=== PATIENT | female | born 1975 | race Caucasian/White ===

== ENCOUNTER 2018-01-15 15:24 | Emergency (ER) | payer BC ==
[~2018-01-15] VITALS: Ht 154.9 cm; Wt 64.0 kg
[~2018-01-15 15:24] MED LIST: CALCCHW25 CHEW; CLOB0.0571 TOPICAL; IRON PO; LEVOTAB14 PO; MULTTAB67 PO
[2018-01-15 15:27] VITALS: BP 188/78; PULSE 83; RESP 18; TEMP 99; O2SAT 0; O2SAT 100
[2018-01-15 15:55] LABS: BILIRUBIN, URINE NEG (NEG); BLOOD, URINE NEG (NEG); GLUCOSE,URINE NEG (NEG); KETONE, URINE 15 mg/dL (NEG); NITRITE,URINE NEG (NEG); PH, URINE 5.5 (5.0-8.5); URINE COLOR YELLOW (YELLW/STRAW); URINE LEUKOCYTE ESTERASE NEG (NEG)
[2018-01-15 16:03] LABS: MUCUS URINE FEW /lpf (OCC); SQUAMOUS EPITHELIAL CELL URINE 0-2 /hpf (0-5)
--- NOTE | 2018-01-15 16:42 | PD ---
HPI Chief Complaint: Abdominal Pain Time Seen by Provider: 16:34 Travel History International Travel<30 days: No Contact w/Intl Traveler<30days: No Traveled to known affect area: No History of Present Illness HPI 42-year-old female with history of Mary-en-Y gastric bypass surgery by Dr. Sierra in 2008, cholecystectomy, ventral hernia repairs, here for evaluation of epigastric and left upper quadrant abdominal pain. Patient reports intermittent episodes of pain over the last 4 days. Pain is described as sharp and radiates to her back. Currently she is pain-free, however she did have the pain when she checked in to the emergency department. Pain seems to be aggravated by eating, improved with having a bowel movement. No diarrhea. No vomiting. No fevers. No urinary symptoms. PFSH Past Medical History Heart Rhythm Problems: Yes (WPW) Cancer: No Cardiac Catheterization: Yes (Ablation, PM) Cardiovascular Problems: Yes (WPW SYNDROME, PACER) Diabetes: No Diminished Hearing: No Endocrine: No Glaucoma: No Genitourinary: No Hepatitis: No Hiatal Hernia: Yes Hypertension: Yes Immune Disorder: No Musculoskeletal: No Neurologic: No Psychiatric: No Reproductive: No Respiratory: No Thyroid Disease: No Tetanus Vaccination: Unknown Influenza Vaccination: Yes ?: Not LMP: 3 weeks : 3 Para: 2 : 1 Past Surgical History Abdominal Surgery: Yes (Gastric bypass) AICD: No Cardiac Surgery: Yes (CARDIAC ABLATION X 2 (SVT), PACEMAKER) Section: Yes (X's 2) Cholecystectomy: Yes Ear Surgery: No Endocrine Surgery: No Eye Surgery: No Genitourinary Surgery: No Gynecologic Surgery: Yes (C SECTION X 2) Joint Replacement: No Oral Surgery: No Pacemaker: Yes (Medtronic ) Other Surgery: Yes Social History Alcohol Use: Yes (Occ.) Tobacco Use: No Substance Use: No Allergies-Medications (Allergen,Severity, Reaction): Coded Allergies: hydromorphone (Verified Allergy, Intermediate, panicky, 01/15/18) codeine (Verified Adverse Reaction, Intermediate, NAUSEA & DIZZY, 01/15/18) Reported Meds & Prescriptions Reported Meds & Active Scripts Active Bentyl (Dicyclomine HCl) 10 Mg Cap 10 Mg PO TID PRN Protonix (Pantoprazole Sodium) 40 Mg Tab 40 Mg PO DAILY Reported Myzilra (Levonorgestrel-Ethinyl Estradiol) 6-5- Tab 1 Tab PO DAILY Review of Systems Except as stated in HPI: all other systems reviewed are Neg Physical Exam Narrative GENERAL: Well-developed, well-nourished, comfortable, no apparent distress. SKIN: Focused skin assessment warm/dry. No rash. HEAD: Atraumatic. Normocephalic. EYES: Pupils equal and round. No scleral icterus. No injection or drainage. ENT: Mucous membranes pink and moist. NECK: Trachea midline. No JVD. CARDIOVASCULAR: Regular rate and rhythm. RESPIRATORY: No accessory muscle use. Clear to auscultation. Breath sounds equal bilaterally. GASTROINTESTINAL: Abdomen soft, non-tender, nondistended. MUSCULOSKELETAL: No obvious deformities. No clubbing. No cyanosis. No edema. NEUROLOGICAL: Awake and alert. No obvious cranial nerve deficits. Motor grossly within normal limits. Normal speech. PSYCHIATRIC: Appropriate mood and affect; insight and judgment normal. Data Data Last Documented VS Vital Signs Date Time Temp Pulse Resp B/P (MAP) Pulse Ox O2 Delivery O2 Flow Rate FiO2 01/15/18 17:50 62 14 150/79 (102) 100 Room Air 01/15/18 15:27 99.0 Orders Orders Urinalysis - C+S If Indicated (01/15/18 15:34) Ed Urine Pregnancytest Poc (01/15/18 15:34) Complete Blood Count With Diff (01/15/18 16:39) Comprehensive Metabolic Panel (01/15/18 16:39) Lipase (01/15/18 16:39) Prothrombin Time / Inr (Pt) (01/15/18 16:39) Act Partial Throm Time (Ptt) (01/15/18 16:39) Iv Access Insert/Monitor (01/15/18 16:39) Ecg Monitoring (01/15/18 16:39) Oximetry (01/15/18 16:39) Sodium Chloride 0.9% Flush (Ns Flush) (01/15/18 16:45) Electrocardiogram (01/15/18 16:39) Ckmb (Isoenzyme) Profile (01/15/18 16:39) Troponin I (01/15/18 16:39) Pantoprazole (Protonix) (01/15/18 17:45) Dicyclomine (Bentyl) (01/15/18 17:45) Labs Laboratory Tests Test 01/15/18 15:39 01/15/18 16:50 Urine Collection Type CLEAN CATCH Urine Color YELLOW Urine Turbidity CLEAR Urine pH 5.5 Urine Specific [place] 1.020 Urine Protein NEG mg/dL Urine Glucose (UA) NEG mg/dL Urine Ketones 15 mg/dL Urine Occult Blood NEG Urine Nitrite NEG Urine Bilirubin NEG Urine Urobilinogen 0.2 MG/DL Urine Leukocyte Esterase NEG Urine Squamous Epithelial Cells 0-2 /hpf Urine Mucus FEW /lpf Microscopic Urinalysis Comment CULT NOT INDICATED White Blood Count 6.5 TH/MM3 Red Blood Count 4.30 MIL/MM3 Hemoglobin 11.0 GM/DL Hematocrit 34.7 % Mean Corpuscular Volume 80.6 FL Mean Corpuscular Hemoglobin 25.6 PG Mean Corpuscular Hemoglobin Concent 31.8 % Red Cell Distribution Width 13.1 % Platelet Count 239 TH/MM3 Mean Platelet Volume 7.9 FL Neutrophils (%) (Auto) 59.4 % Lymphocytes (%) (Auto) 30.4 % Monocytes (%) (Auto) 9.0 % Eosinophils (%) (Auto) 0.8 % Basophils (%) (Auto) 0.4 % Neutrophils # (Auto) 3.8 TH/MM3 Lymphocytes # (Auto) 2.0 TH/MM3 Monocytes # (Auto) 0.6 TH/MM3 Eosinophils # (Auto) 0.1 TH/MM3 Basophils # (Auto) 0.0 TH/MM3 CBC Comment DIFF FINAL Differential Comment Prothrombin Time 10.5 SEC Prothromb Time International Ratio 1.0 RATIO Activated Partial Thromboplast Time 22.9 SEC Blood Urea Nitrogen 7 MG/DL Creatinine 0.58 MG/DL Random Glucose 83 MG/DL Total Protein 6.9 GM/DL Albumin 3.4 GM/DL Calcium Level 8.5 MG/DL Alkaline Phosphatase 54 U/L Aspartate Amino Transf (AST/SGOT) 15 U/L Alanine Aminotransferase (ALT/SGPT) 19 U/L Total Bilirubin 0.2 MG/DL Sodium Level 138 MEQ/L Potassium Level 3.7 MEQ/L Chloride Level 106 MEQ/L Carbon Dioxide Level 24.3 MEQ/L Anion Gap 8 MEQ/L Estimat Glomerular Filtration Rate 114 ML/MIN Total Creatine Kinase 67 U/L Troponin I LESS THAN 0.02 NG/ML Lipase 98 U/L [facility] Medical Decision Making Medical Screen Exam Complete: Yes Emergency Medical Condition: Yes Medical Record Reviewed: Yes Interpretation(s) EKG: Sinus, rate 59, normal axis, normal intervals, no acute ischemic abnormality. Differential Diagnosis Gastritis, peptic ulcer disease, pancreatitis, hepatobiliary disease, internal hernia Narrative Course Vital signs reviewed. CBC: WBC 6.5, hemoglobin 11, hematocrit 34.7, platelets 239. CMP is unremarkable. Lipase is 98. Cardiac enzymes are negative. UA is not suggestive of UTI. Case was discussed with bariatric surgeon Dr. Sierra. The patient is currently pain-free and has no clinical signs of obstruction. She is having normal bowel movements and is not vomiting. Plan at this time is to discharge her home in his office will contact her tomorrow to schedule an outpatient CT scan as well as outpatient follow-up in his office. Patient was made aware of all findings and is happy with this plan. She was advised on when to return to the emergency department. Diagnosis Primary Impression: Abdominal pain Qualified Codes: R10.13 - Epigastric pain Referrals: Erik Solorzano MD 1 day Additional Instructions: Follow-up with Dr. Solorzano this week. Return to the emergency department for worsening symptoms or any other concerns. Scripts Dicyclomine (Bentyl) 10 Mg Cap 10 MG PO TID Y for Bowel Management, #20 CAP 0 Refills Prov: Santino Liz MD 01/15/18 Pantoprazole (Protonix) 40 Mg Tab 40 MG PO DAILY for Reflux, #30 TAB 0 Refills Prov: Santino Liz MD 01/15/18 Disposition: 01 DISCHARGE HOME Condition: Stable Santino Liz MD Jan 15, 2018 16:42
[2018-01-15] MEDS ORDERED: SODIUM CHLORIDE 0.9% FLUSH 10 ML FLUSH IV FLUSH PRN (16:45)
[2018-01-15 16:55] VITALS: O2SAT 100
[2018-01-15 17:02] LABS: AUTOMATED NEUTROPHIL # 3.8 TH/MM3 (1.8-7.7); BASOPHIL % 0.4 % (0.0-2.0); EOSINOPHIL # 0.1 TH/MM3 (0-0.4); EOSINOPHIL % 0.8 % (0.0-4.0); HEMATOCRIT 34.7 % (35.0-46.0); LYMPH % 30.4 % (9.0-44.0); MEAN CELL VOLUME 80.6 FL (80.0-100.0); MEAN CORPUSCULAR HEMOGLOBIN 25.6 PG (27.0-34.0); MEAN CORPUSCULAR HGB CONC 31.8 % (32.0-36.0); MEAN PLATELET VOLUME 7.9 FL (7.0-11.0); MONOCYTE # 0.6 TH/MM3 (0-0.9); NEUT % 59.4 % (16.0-70.0); PLATELET COUNT 239 TH/MM3 (150-450); RED CELL DISTRIBUTION WIDTH 13.1 % (11.6-17.2); WHITE BLOOD COUNT 6.5 TH/MM3 (4.0-11.0)
[2018-01-15 17:14] LABS: CHLORIDE 106 MEQ/L (98-107); SODIUM (NA) 138 MEQ/L (136-145)
[2018-01-15 17:16] LABS: PROTHROMBIN TIME - PATIENT 10.5 SEC (9.8-11.6)
[2018-01-15 17:17] LABS: CALCIUM 8.5 MG/DL (8.5-10.1)
[2018-01-15 17:18] LABS: ALBUMIN 3.4 GM/DL (3.4-5.0); BICARBONATE 24.3 MEQ/L (21.0-32.0); BLOOD UREA NITROGEN 7 MG/DL (7-18); GLUCOSE,RANDOM 83 MG/DL (74-106)
[2018-01-15 17:21] LABS: ALT (GPT) 19 U/L (10-53); AST (GOT) 15 U/L (15-37); CREATININE 0.58 MG/DL (0.50-1.00); GLOMERULAR FILTRATION RATE 114 ML/MIN (>89)
[2018-01-15 17:22] LABS: TOTAL BILIRUBIN ADULT 0.2 MG/DL (0.2-1.0); TOTAL PROTEIN 6.9 GM/DL (6.4-8.2)
[2018-01-15 17:23] LABS: ALKALINE PHOSPHATASE 54 U/L (45-117)
[2018-01-15 17:26] LABS: TROPONIN I LESS THAN 0.02 NG/ML (0.02-0.05)
[2018-01-15] MEDS ORDERED: DICYCLOMINE HCL 10 MG CAP PO ONE (17:45)
[2018-01-15] MEDS ORDERED: PANTOPRAZOLE SOD 40 MG DELAYED RELEASE TAB PO ONE (17:45)
[2018-01-15 17:50] VITALS: BP 150/79; PULSE 62; RESP 14; O2SAT 100
[2018-01-15] MEDS ORDERED: DICY10 PO (17:52)
[2018-01-15] MEDS ORDERED: PROT40TA PO (17:52)
--- NOTE | 2018-01-16 15:54 | EKG ---
Date Performed: 01/15/2018 Time Performed: 16:55:14 PTAGE: 42 years EKG: SINUS BRADYCARDIA POSSIBLE RIGHT VENTRICULAR CONDUCTION DELAY BORDERLINE ECG PREVIOUS TRACING : 10/10/2008 14.52 No significant change from previous tracing noted. DOCTOR: Dale Dahl Interpretating Date/Time 01/16/2018 15:54:13
== END 2018-01-15 18:00 | disposition home or self-care (01) ==
LOC: PHED 15:24
DX: R10.13 Epigastric pain (principal); Z98.84 Bariatric surgery status
CPT/HCPCS: 80053; 81001; 82550; 83690; 84484; 84703; 85025; 85610; 85730; 93005

== ENCOUNTER → 2018-02-09 | Day surgery (SDC) | payer BC ==
[~2018-02-09] MED LIST changes: -CALCCHW25 CHEW; -CLOB0.0571 TOPICAL; +DICY10 PO; -IRON PO; +LACTATED RINGER'S 1000 ML INJ 1,000 ML ONE; -MULTTAB67 PO; +PROPOFOL 200 MG/20 ML AMP IV ONE; +PROT40TA PO
--- NOTE | 2018-02-09 08:16 | GIPROC ---
[facility] [address] [facility], [address] EGD PROCEDURE REPORT EXAM DATE: 02/09/2018 PATIENT NAME: Sasha Sinclair MR #: [id number] BIRTHDATE: 1975 ATTENDING: Andre Medina MD ORDER #: [id number] KITCHEN HELPER: none STATUS: outpatient INDICATIONS: The patient is a 42 yr old female here for an EGD due to history of esophageal reflux and hx of gastric bypass in 2008, epigastric pain PROCEDURE PERFORMED: EGD, diagnostic MEDICATIONS: None and Per Anesthesia. TOPICAL ANESTHETIC: none CONSENT: The patient understands the risks and benefits of the procedure and understands that these risks include, but are not limited to: sedation, allergic reaction, infection, perforation and/or bleeding. Alternative means of evaluation and treatment include, among others: physical exam, x-rays, and/or surgical intervention. The patient elects to proceed with this endoscopic procedure. medical equipment was checked for proper function. Hand hygiene and appropriate measures for infection prevention was taken. After the risks, benefits and alternatives of the procedure were thoroughly explained, Informed consent was verified, confirmed and timeout was successfully executed by the treatment team. The patient was anesthetized with topical anesthesia and the EC-[id number] ([id number]) endoscope was introduced through the mouth and advanced to the anastomosis. Retroflexion was not performed The gastroscope was then slowly withdrawn and removed. Mild friable tissue around anastomosis, no definitive ulcer pouch length 6cm blind limb normal. ADVERSE EVENTS: There were no complications. IMPRESSIONS: 1. Mild friable tissue around anastomosis, no definitive ulcer pouch length 6cm blind limb normal 2. Retroflexion was not performed RECOMMENDATIONS: Continue PPI PATIENT CONDITION: fair DISPOSITION: Home REPEAT EXAM: NONE Andre Medina MD eSigned: Andre Medina MD 02/09/2018 8:16 AM cc: Erik Solorzano M.D.
== END | disposition home or self-care (01) ==
LOC: ESDC 06:44
PROVIDERS: ATTEND Surgery
DX: K21.9 Gastro-esophageal reflux disease without esophagitis (principal); R10.13 Epigastric pain; Z98.84 Bariatric surgery status
CPT/HCPCS: 00731; 43235; J3010; J7120